=== PATIENT | female | born 1960 | race Caucasian/White ===

== ENCOUNTER 2023-02-20 04:07 | Day surgery (SDC) | payer BC, OTHER ==
[2023-02-18 17:45] VITALS: BMI 27.4
[2023-02-20] MEDS ORDERED: LIDOCAINE HCL/PF 1% SDV 5ML VIAL ONE (07:19)
[2023-02-20] MEDS ORDERED: TRIAMCINOLONE ACET 40MG/1ML VIAL ONE (07:19)
[2023-02-20] MEDS ORDERED: BUPIVACAINE HCL/PF 0.5% (5MG/ML) 10 ML VIAL ONE (07:19)
[2023-02-20 09:45] VITALS: RESP 18
[2023-02-20] MEDS ORDERED: ACETAMINOPHEN 500 MG TABLET (FP) PO PRN (11:17)
[2023-02-20 12:50] VITALS: BP 136/73; PULSE 54; TEMP 97.9
== END 2023-02-20 12:05 | disposition home or self-care (01) ==
LOC: JASU-SURG 04:07
PROVIDERS: ATTEND Pain Medicine Pain Medicine
PROC: 3E0U3GC Introduction of Other Therapeutic Substance into Joints, Percutaneous Approach (ICD-10-PCS; principal; 2023-02-20 11:40)
DX: M53.3 Sacrococcygeal disorders, not elsewhere classified (principal)
CPT/HCPCS: 76000-TC-FY